=== PATIENT | female | born 1945 | race Caucasian/White ===

== ENCOUNTER → 2022-07-20 | Outpatient (CLI) | payer MEDICARE, OTHER, SELFPAY ==
--- NOTE | 2022-07-20 | CYSPIN_PTH ---
PATIENT: BLAYNE PACK LOC: [facility] U#:[id number] AGE/SX: 77/F ROOM: RE07/20/[address]: Dr. Martha Gillette MD : 1945 BED: DIS: 07/20/2022 SPEC #: [id number] RECD: 07/23/22 09:31 STATUS: VINCE GARZON #: [id number] ZBIGNIEW: 07/20/22 00:[address]: Martha Gillette DEPT: CYTOLOGY RECD BY: Tejinder Almanza Tissues: Urine Procedures: Pap Stain (control) Special Stain Group II Cytospin Fluid HEADER OPERATION: Not noted PRE-OP DIAGNOSIS: Dysuria TISSUE SUBMITTED: Urine DIAGNOSIS CYTOLOGY Urine for cytology (cytospin): Negative for high-grade urothelial carcinoma ([facility]), ([facility] cytology category II). Acute inflammation. See arianna. DHAVAL 07/23/22 COMMENT Numerous organisms consistent with bacteria are also noted. The [facility] System for urine cytology diagnostic categorization was used in the evaluation of this case. CYTOLOGY STUDY Slides are reviewed. CYTOLOGY GROSS Received is 40 ml of light yellow cloudy fluid labeled with the patient's name and and designated per the requisition as urine. Submitted for cytology preparation. /Robinson 07/23/22 TC: 2 CPT: 68279
[2022-07-20 17:40] LABS: Cytology, Body Fluid / CSF SEE PATHOLOGY REPORT
== END | disposition home or self-care (01) ==
PROVIDERS: Visit Provider Urology
DX: R30.0 Dysuria (principal)
CPT/HCPCS: 88108; 88313